=== PATIENT | female | born 1960 | race Hispanic/Latino ===

== ENCOUNTER 2024-04-19 19:27 | Emergency (ER) | payer SELFPAY ==
[~2024-04-19] VITALS: Ht 162.6 cm; Wt 83.9 kg
[2024-04-19] MEDS ORDERED: IOPAMIDOL 370 MG/ML 100 ML INFUS..BTL INJ ONE (20:25)
[2024-04-19] MEDS: ONDANSETRON HCL INJ 2MG/ML 2ML 2 MG/ML VIAL IV ONE (20:40)
[2024-04-19] MEDS: KETOROLAC TROMETHAMINE 30 MG/ML VIAL IV ONE (20:41)
[2024-04-19] MEDS: LACTATED RINGER'S 1,000 ML INJ ONE (20:41)
[2024-04-19] MEDS ORDERED: ONDANSETRON HCL INJ 2MG/ML 2ML 2 MG/ML VIAL IV PRN (23:45)
[2024-04-20] MEDS ORDERED: DEXTROSE 50% SYRINGE 50 ML IV PRN
[2024-04-20] MEDS ORDERED: DIPHENHYDRAMINE HCL INJ 50 MG/ML VIAL IV PRN
[2024-04-20] MEDS ORDERED: ENALAPRILAT IV INJ 1.25 MG/ML VIAL IV PRN
[2024-04-20] MEDS ORDERED: Morphine 2mg Syringe 2 MG/ML SYR IV PRN
[2024-04-20] MEDS: LACTATED RINGER'S 1,000 ML IV SCH
[2024-04-20 02:20] VITALS: PULSE 78; RESP 16; TEMP 98.3
[2024-04-20 02:24] VITALS: BP 139/83; PULSE 68; RESP 16; TEMP 98.3; O2SAT 96
[2024-04-20] MEDS ORDERED: INSULIN REGULAR, HUMAN 100 UNIT/1 ML SQ SCH (07:30)
[2024-04-20] MEDS ORDERED: FAMOTIDINE 20 MG/2 ML VIAL IV SCH (09:00)
== END 2024-04-20 02:26 | disposition other institution (70) ==
LOC: FSED 19:32 → UNDOADMIN 23:43 → ERHOLD 23:43
DX: R10.31 Right lower quadrant pain (principal); K37 Unspecified appendicitis; K80.20 Calculus of gallbladder without cholecystitis without obstruction; K76.0 Fatty (change of) liver, not elsewhere classified; R16.0 Hepatomegaly, not elsewhere classified; D25.9 Leiomyoma of uterus, unspecified; I10 Essential (primary) hypertension; E11.9 Type 2 diabetes mellitus without complications
CPT/HCPCS: 74177; 80053; 81003; 85025; 99284; J1885; J2405; J7121; Q9967